=== PATIENT | female | born 1960 | race Caucasian/White ===

== ENCOUNTER → 2020-07-04 10:45 | Outpatient (CLI) | payer BC, SELFPAY ==
--- NOTE | ~2020-07-04 | US_ITS ---
EXAMINATION: US pelvic complete w TV EXAM DATE: 07/04/2020 11:30 INDICATION: Abnormal MRI exam. TECHNIQUE: Pelvic transabdominal and transvaginal sonogram was performed. There are multiple graysca le and Doppler images available for interpretation. There is no prior study for comparison. FINDINGS: Uterus measures 7.0 x 3.5 x 4.1 cm, and is morphologically normal. Endometrial stripe joseph sures 6 mm, within normal limits. There is no free pelvic fluid. Right adnexa: The ovary measures 1.5 x 1.7 x 1.6 cm cm and is morphologically normal. Ovarian vascula r flow confirmed. Left adnexa: The ovary measures 5.8 x 7.0 x 6.1 cm, with an anechoic lesion measuring 4.8 x 5.2 x 5.6 cm. Given that patient is postmenopausal potentially could be a cystic ovarian neoplasm. Differentia l diagnosis includes endometrioma or hemorrhagic cyst. No evidence of complexity or solid mural nodul e identified, favors benign histology Ovarian vascular flow confirmed. IMPRESSION: Left ovarian cystic lesion, possible neoplasm. Could obtain 6 weeks follow-up, or recom mendation based on the MRI examination. Reviewed, dictated and finalized at location A. L INSPECTOR SHUTTLE IMPRESSION: Left ovarian cystic lesion, possible neoplasm. Could obtain 6 wee ks follow-up, or recommendation based on the MRI examination.
== END ==
PROVIDERS: PCP Internal Medicine; Visit Provider Obstetrics & Gynecology Gynecology
DX: R93.5 Abnormal findings on diagnostic imaging of other abdominal regions, including retroperitoneum (principal)
CPT/HCPCS: 76830; 76856

== ENCOUNTER → 2021-02-05 13:25 | Outpatient (CLI) | payer BC, SELFPAY ==
--- NOTE | ~2021-02-05 | US_ITS ---
EXAMINATION: US transvaginal EXAM DATE: 02/05/2021 14:03 INDICATION: Unspecified ovarian cyst, left side . TECHNIQUE: Pelvic transvaginal sonogram was performed. There are multiple grayscale and Doppler imag es available for interpretation. Comparison is made to prior examination from 07/04/2020. FINDINGS: Uterus measures 6.5 x 3.4 x 4.3 cm, and is morphologically normal. Endometrial stripe joseph sures 5 mm, within normal limits. There is no free pelvic fluid. Right adnexa: The ovary is not identified. There is no adnexal mass. Left adnexa: There is left adnexal cystic mass, with 2 separate regions measured at 7.2 x 6.5 x 7.2 c m and the smaller at 4.4 x 4.3 x 4.8 cm. Probably ovarian origin. Difficult to visualize any normal o varian tissue surrounding this, could not document flow, although no acute symptoms were provided. On previous examination the left ovary was also enlarged with cystic region which is probably the goldy e area identified today, possibly with interval increase in size. IMPRESSION: Persistent left ovarian cystic mass, most likely neoplasm in this postmenopausal patient. Consider histologic correlation. Reviewed, dictated and finalized at location A. IMPRESSION: Persistent left ovarian cystic mass, most likely neoplasm in this p ostmenopausal patient. Consider histologic correlation.
== END ==
PROVIDERS: PCP Internal Medicine; Visit Provider Obstetrics & Gynecology Gynecology
DX: N83.202 Unspecified ovarian cyst, left side (principal)
CPT/HCPCS: 76830

== ENCOUNTER 2021-03-19 11:46 | Emergency (ER) | payer BC, SELFPAY ==
[2021-03-19] VITALS (14 sets, daily range): BP systolic 135–154; BP diastolic 83–90; PULSE 67–77; RESP 18; TEMP 36.2–36.4; O2SAT 99–100
--- NOTE | ~2021-03-19 | US_ITS ---
EXAMINATION: US pelvic complete w TV DATE: 03/19/2021 18:20 INDICATION: Left ovarian pain TECHNIQUE: Multiple transabdominal and endovaginal sonographic images of the pelvis were obtained. COMPARISON: None. FINDINGS: The uterus measures 7.9 x 2.7 x 4.3 cm. The endometrial complex measures 5 mm in thickness. The righ t ovary measures 2.6 x 1.9 x 2.4 cm. 1.9 x 1.2 x 1.4 cm anechoic right ovarian cyst. The left ovary m easures 4.3 x 2.6 x 3.8 cm. 9.0 x 7.9 x 6.8 cm anechoic cyst which appears to arise from the left ova ry. There is normal vascular flow in the ovaries. There is no free fluid in the pelvis. IMPRESSION: 1. Bilateral simple appearing ovarian cysts measuring 1.9 cm on the right and 9.0 cm on the left. Reviewed, dictated and finalized at location A. T FURNACE TENDER IMPRESSION: 1. Bilateral simple appearing ovarian cysts measuring 1.9 cm on the right and 9 .0 cm on the left.
[2021-03-19 12:24] LABS: Basophils Absolute Auto 0.1 K/mm3 (0.0-0.1); Basophils Percent Auto 0.8 % (0.2-1.2); Eosinophils Absolute Auto 0.3 K/mm3 (0-0.3); Eosinophils Percent Auto 5.6 % (0-4.4); Hematocrit 40.2 % (37.0-47.0); Hemoglobin 13.6 g/dL (12.0-15.0); Immature Granulocyte Absolute 0.01 K/mm3 (0.00-0.031); Immature Granulocyte Percent A 0.2 % (0-0.5); Lymphocytes Absolute Auto 2.87 K/mm3 (0.9-3.2); Lymphocytes Percent Auto 48.7 % (18.3-44.2); Mean Corpuscular HGB Conc 33.8 g/dl (32-36); Mean Corpuscular Hemoglobin 28.9 pg (26-34); Mean Corpuscular Volume 85.4 fl (80-100); Mean Platelet Volume 9.7 fl (7.4-10.4); Monocytes Absolute Auto 0.4 K/mm3 (0.1-0.6); Monocytes Percent Auto 6.5 % (2.6-8.5); Neutrophils Absolute Auto 2.3 K/mm3 (1.3-6.7); Neutrophils Percent Auto 38.2 % (45.5-73.1); Platelet Count Result 244 k/mm3 (150-375); Red Blood Count 4.71 M/mm3 (4.2-5.4); Red Cell Distribution Width 12.7 % (11.5-14.5); White Blood Count 5.9 K/mm3 (4.5-10.0)
[2021-03-19 12:42] LABS: Alanine Aminotransferase 31 U/L (4-35); Albumin Level 4.4 g/dL (3.5-5.1); Alkaline Phosphatase 55 U/L (38-126); Anion Gap 7 mmol/L (8-16); Aspartate Amino Transferase 28 U/L (14-36); Bilirubin,Total 0.5 mg/dL (0.2-1.3); Blood Urea Nitrogen 12 mg/dL (7-17); Calcium 9.2 mg/dL (8.4-10.2); Carbon Dioxide 29 mmol/L (22-30); Chloride 102 mmol/L (98-107); Estimated CRCL calculation 80 ml/min; Estimated Glomerular Filt Rate > 60; Glucose 91 mg/dL (65-110); Lipase 79 U/L (23-300); Potassium 3.8 mmol/L (3.4-5.0); Sodium 138 mmol/L (137-145)
[2021-03-19 13:13] LABS: Add Urine Microscopic? YES; Appearance Urine Clear (Clear); Bacteria Urine Trace /hpf; Bilirubin Urine Negative (Negative); Blood Urine Negative (Negative); Color Urine Colorless (Yellow); Glucose Urine UA Negative (Negative); Ketones Urine Negative (Negative); Leukocyte Esterase Ur 1+ LEU/UL (Negative); Mucus Urine Rare /lpf; Nitrate Urine Negative (Negative); Protein Urine Negative (Negative); RBC Urine 0-2 /hpf (0-2); Squamous Epithelial Cell Urine Rare /hpf (Few); Urobilinogen Urine Negative mg/dL (<2.0); WBC Urine 0-3 /hpf
[2021-03-19 13:26] LABS: Specific Grav Ur 1.002 (1.001-1.035)
--- NOTE | 2021-03-19 19:06 | ED.GENADULT ---
HPI - General Adult General Chief complaint: Abdominal Pain Stated complaint: pelvis pain, upcoming surgery on Friday Time Seen by Provider: 03/19/21 17:02 Source: patient Mode of arrival: ambulatory Limitations: no limitations History of Present Illness HPI narrative: Patient is a 60-year-old female presented with chief complaint of ovarian discomfort over the past 2 to 3 weeks. Patient alternates between. Complaints of the right and left side. Patient reports she was prescribed tramadol for the pain but it does not work. She reports taking hydrocodone for the pain which she was prescribed for a back problem at a different time. She reports the hydrocodone did not relieve the pain either. Patient reports that she called her [employer] ARCHITECT to request additional pain medication and was told to present to the emergency department. Patient reports that her symptoms have not changed over the past 2 weeks. She denies any vaginal bleeding or discharge. She reports that her [employer] ARCHITECT is Dr. Aguilar and they are planning to perform a oophorectomy on Friday. Related Data Home Medications Medication Instructions Recorded Confirmed celecoxib 200 mg PO PRN PRN 03/19/21 03/19/21 hydrocodone-acetaminophen 1 tablet PO PRN PRN 03/19/21 03/19/21 tramadol 50 mg PO PRN PRN 03/19/21 03/19/21 Allergies Allergy/AdvReac Type Severity Reaction Status Date / Time No Known Allergies Allergy Verified 03/19/21 14:22 Review of Systems Review of Systems: CONSTITUTIONAL: Denies fever, chills, or sweats. EYES: Denies visual changes, redness, or discharge. ENT: Denies rhinorrhea, congestion, sore throat, or otalgia. CARDIOVASCULAR: Denies chest pain, palpitations, or edema. RESPIRATORY: Denies cough or dyspnea. GASTROINTESTINAL: Denies abdominal pain, nausea, vomiting, or diarrhea. GENITOURINARY: Reports ovarian pain denies dysuria or hematuria. SKIN: Denies rash or itching. MUSCULOSKELETAL: Denies back pain, joint pain, or myalgia. NEUROLOGIC: Denies headache, numbness, dizziness, or weakness. PSYCHIATRIC: Denies anxiety or depression. PMFSH Social History Social History Smoking status: Never smoker Spiritual care concerns: No Exam Narrative: GENERAL: Well-appearing, well-nourished, and in no acute distress. Patient appears to be drowsy. HEAD: Normocephalic, atraumatic. EYES: PERRLA and EOMI. CHEST: Clear to auscultation. No respiratory distress. No wheezes rales or rhonchi HEART: Regular rate and rhythm. No murmur heard. Normal peripheral pulses. ABDOMEN: Soft, nontender, nondistended, normal active bowel sounds. EXTREMITIES: Normal range of motion. No edema. SKIN: Warm, dry, no rash. NEURO: No focal deficits. Alert and oriented x3. PSYCH: Normal mood and affect. Course Vital Signs Vital signs: Vital Signs Temperature 97.2 F L 03/19/21 12:04 Pulse Rate 70 03/19/21 12:04 Respiratory Rate 18 03/19/21 12:04 Blood Pressure 154/90 H 03/19/21 12:04 Pulse Oximetry 100 03/19/21 12:04 Temperature 97.5 F L 03/19/21 13:40 Pulse Rate 67 03/19/21 17:12 Respiratory Rate 18 03/19/21 17:12 Blood Pressure 142/83 H 03/19/21 17:12 Pulse Oximetry 100 03/19/21 17:12 Medical Decision Making MDM Narrative Medical decision making narrative: Consult with Dr. Garcia who is on-call for Dr. Aguilar regarding patient presentation, concerns, physical exam, ultrasound report. She states that the patient can be given a single dose of Toradol in the emergency department and be instructed to continue her previously prescribed pain control medication and speak with Dr. Guy tomorrow to discuss plan of care. She denies any additional interventions and is to be completed in emergency department at this time. Vital Signs Vital Signs: Vital Signs Temperature 97.2 F L 03/19/21 12:04 Pulse Rate 70 03/19/21 12:04 Respiratory Rate 18 03/19/21 12:04 Blood Pressure 154/90 H 03/19/21 12:04 Pulse Oximetry 100 03/19/21 12:04
[2021-03-19] MEDS: KETOROLAC (*BKC) 60 MG/2 ML VIAL IM (19:21)
== END 2021-03-19 19:24 | disposition home or self-care (01) ==
PROVIDERS: Emergency Medicine; Emergency Provider Emergency Medicine; PCP Internal Medicine
DX: N94.89 Other specified conditions associated with female genital organs and menstrual cycle (principal); N83.292 Other ovarian cyst, left side; N83.291 Other ovarian cyst, right side
CPT/HCPCS: 36415; 76830; 76856; 80053; 81001; 83690; 85025; 96372; 99284; J1885

== ENCOUNTER → 2021-03-20 01:57 | Outpatient (CLI) | payer BC, SELFPAY ==
[2021-03-20 19:35] LABS: SARS-CoV-2 RNA PCR Negative
== END ==
PROVIDERS: PCP Internal Medicine; Visit Provider Obstetrics & Gynecology Gynecology
DX: Z01.812 Encounter for preprocedural laboratory examination (principal); Z20.822 Contact with and (suspected) exposure to COVID-19
CPT/HCPCS: C9803; U0003; U0005

== ENCOUNTER 2021-03-23 01:22 | Day surgery (SDC) | payer BC, SELFPAY ==
[2021-03-19 14:24] VITALS: BMI 28.1
--- NOTE | 2021-03-19 14:29 | PC.NURSE ---
Report to the Outpatient Waiting Room, entrance under the green pavilion located off [facility], at time _1045 on date03/23/21 . OR Time: ____1245____. - You and your visitor will be asked a series of questions to screen for COVID 19 for your protection. - A mask is required within the hospital. - Only one visitor is allowed at this time. Patient visitors will be guided where to wait when not with patient. Preoperative COVID Testing Requirements: No COVID Test needed if: (proof is required; if not received patient will have Rapid Test prior to entry) COVID TESTING 03/20/21 AT 0900 - Patient has received COVID Vaccine at least 14 days prior to procedure date or - Patient has positive COVID test result within last 90 days of surgery date. COVID Test needed if above criteria is not met If not COVID vaccinated a COVID test must be conducted within 72 hours of surgery and patient is asked to isolate self from time of testing until procedure. You will go to the [employer] [facility] for your COVID testing. The [employer] [facility] site is located at the corner of [address] [facility]. You will only be called if COVID results are positive and your surgeon may reschedule your elective surgery date. Patients may have clear liquids (water, carbonated beverages, clear teas, apple juice) until 3 hours prior to surgery with a maximum of 20 ounces. - No food from midnight until time of surgery - Infants may have breast milk until 4 hours before surgery, formula 6 hours prior to surgery. - Children will be allowed to drink immediately following surgery. If applicable, please bring a bottle or sippy cup to assist with drinking. Juice, water, soda, and popsicles are readily available. For infants on formula, please bring formula the day of surgery. Pacifiers are allowed. Take the following medications with a SIP of water the morning of surgery: PAIN PILL IF NEEDED Medications to discontinue per physician __NONE Date to take last dose Please no make-up, nail luxembourger, hairspray, perfume, deodorant, or body powder the day of surgery. No jewelry (including any body piercings) or valuables the day of surgery, leave them at home. Please take a shower or bath the night before, or the morning of, surgery with an antibacterial soap. Wear comfortable, loose fitting clothing. Children are encouraged to wear pajamas. - Jewelry must be removed prior to entering the operating room. Rings and piercings that are not removed may be cut off. - The hospital will not accept responsibility for valuables. - Please leave all valuables, including medications, at home the day of surgery. If you are going home after surgery, a licensed route delivery service driver must drive you home. - NO public transportation without another adult. - We recommend that an adult stay with you for 24 hours following discharge. - We also recommend that you do not drive, make important decision, drink alcoholic beverages, or take any drugs that were not prescribed by your health care provider for at least 24 hours after your discharge time. For Pediatric surgeries, we recommend two adults accompany the child home (only one inside the building at this time). Follow any additional instructions given to you from your surgeon. Telephone instructions given to ___PATIENT and asked if any additional questions and then verbalized understanding. Patient advised to call surgeon office or pre surgery nurse liaison [phone] if any additional questions.
[2021-03-23] VITALS (9 sets, daily range): BP systolic 116–143; BP diastolic 60–96; PULSE 64–74; RESP 7–18; TEMP 36.2–36.4; O2SAT 95–100
--- NOTE | 2021-03-23 11:28 | WPDANESEPPF ---
Anes - Initial Pre Proc Eval Procedure: Operation Date: 03/23/21 12:45 Proposed Procedures p Bilateral Laparoscopic Salpingo-Oophorectomy - Julissa Aguilar MD Date/Time: 03/23/21 11:28 Surgeon: Julissa Aguilar MD Pre Op Diagnosis: Left ovarian cyst Patient Data Age: 60 Gender: F Height: 1.7 m Weight: 81 kg Last Vital Signs Temp 36.2 C L 03/23/21 10:41 Pulse 70 03/23/21 10:41 Resp 18 03/23/21 10:41 BP 143/78 H 03/23/21 10:41 Pulse Ox 99 03/23/21 10:41 Allergies Allergy/AdvReac Type Severity Reaction Status Date / Time No Known Allergies Allergy Verified 03/23/21 11:05 Home Medications Medication Instructions Recorded Confirmed Type celecoxib 200 mg PO PRN PRN 03/19/21 03/23/21 History hydrocodone-acetaminophen 1 tablet PO PRN PRN 03/19/21 03/23/21 History tramadol 50 mg PO PRN PRN 03/19/21 03/23/21 History Patient hx anesthesia problems: none Family hx anesthesia problems: none Results Review: All pre-operative results and documents have been reviewed as part of the pre-operative evaluation. [facility] Past Medical History Medical History (Updated 03/23/21 @ 11:28 by César Brito MD) Ovarian cyst Overweight Surgical History Surgical History (Updated 03/23/21 @ 11:29 by César Brito MD) H/O thyroidectomy History of section History of cholecystectomy Social History Social History Smoking status: Never smoker Living arrangements: with family Spiritual care concerns: No Anes - Eval Final PreProcedure Day of Procedure 03/23/21 11:28 Patient weight: overweight Heart: regular rate and rhythm Lungs: clear to auscultation Airway: Mallampati scale class II Neurological: alert and oriented Last oral intake: >/= 8 hours ASA classification: II Emergent: no Anesthetic plan: proceed Anesthesia type and monitoring: general ETT and standard monitoring Results Review: All pre-operative results and documents have been reviewed as part of the pre-operative evaluation. Informed Consent: The patient's anesthetic plan and its attendant risks and benefits were discussed with the patient/family/POA. Questions were solicited and answers provided to the satisfaction of the patient/family/POA.
--- NOTE | 2021-03-23 11:42 | WPDHPUPDATE1 ---
History and Physical Update Update Date/Time: 03/23/21 11:42 History and Physical has been reviewed, including an updated exam of the patient. There are NO changes in the patient's condition. Risks, benefits, and alternatives have been discussed and questions answered. Patient agrees to proceed with procedure.
--- NOTE | 2021-03-23 11:42 | PM.HPGS ---
History of Present Illness History of Present Illness Consent: Risks, benefits, and alternatives have been discussed and questions answered. Patient agrees to proceed with procedure. Chief complaint: Left ovarian cyst Narrative: Estefania Brothers is a 60 year old female with an increasing left ovarian cyst that has been causing pain. Th u/s 03/19 showed increase to 9 cm on left and the right with small 1.9 cm cyst. Both are simple cysts and the ca125 is 6.8. Plan to proceed with laparoscopic bilateral salpingooophorectomy. Risks of infection, bleeding, injury to internal organs, and possible exploratory lap discussed. Patient agrees to proceed. Review of Systems Gastrointestinal: Gastrointestinal: Reports abdominal pain Musculoskeletal: Musculoskeletal: Reports back pain PMFSH Past Medical History Medical History (Updated 03/23/21 @ 11:51 by Julissa Aguilar MD) Interstitial cystitis (normal spontaneous vaginal delivery) x2 Ovarian cyst Overweight Surgical History Surgical History (Updated 03/23/21 @ 11:49 by Julissa Aguilar MD) H/O thyroidectomy H/O tubal ligation History of section x2 History of cholecystectomy Social History Social History Smoking status: Never smoker Living arrangements: with family Spiritual care concerns: No Meds Home Medications and Allergies Home Medications Medication Instructions Recorded Confirmed Type celecoxib 200 mg PO PRN PRN 03/19/21 03/23/21 History hydrocodone-acetaminophen 1 tablet PO PRN PRN 03/19/21 03/23/21 History tramadol 50 mg PO PRN PRN 03/19/21 03/23/21 History Allergies Allergy/AdvReac Type Severity Reaction Status Date / Time No Known Allergies Allergy Verified 03/23/21 11:05 Vital Signs Vital Signs - 24 hr 03/23/21 10:41 Temperature 97.2 F L Pulse Rate 70 Respiratory Rate 18 Blood Pressure 143/78 H Pulse Oximetry 99 Exam Const: General: healthy appearing and alert Orientation/consciousness: patient oriented x3 Resp: Effort & Inspection: normal respiratory effort Auscultation: clear to auscultation bilaterally Cardio: Rate: regular rate Rhythm: regular rhythm GI: GI Palp: Yes Soft to palpation, Yes Tenderness to palpation present (GI), No Guarding due to palpation present (GI) and No Palpable mass present : External Female Exam: normal external appearance Speculum Exam - Vagina: normal appearance of the vagina and normal vaginal discharge Speculum Exam - Cervix: normal appearance of the cervix Bimanual exam- vagina & uterus: uterine size normal and consistency normal Bimanual Exam- Adnexa, other: normal adnexae and tender Neuro: General: patient oriented x3 Assessment and Plan Assessment and plan (1) Ovarian cyst: Code(s): N83.209 - Unspecified ovarian cyst, unspecified side Status: Inactive Assessment and Plan: bilateral L>R with increasng size and pain plan laparoscoic BSO
[2021-03-23] MEDS: LACTATED RINGERS 1,000 ML 30 ML IV CONT (11:50)
--- NOTE | 2021-03-23 14:39 | P.OP_ITS ---
Procedure Note - Detailed Date of Procedure 03/23/21 Pre-op Diagnosis Bilateral ovarian cysts Post-op Diagnosis same Procedure Performed Laparoscopic bilateral salpingo oophorectomy and adhesiolysis Surgeon Julissa Aguilar MD Anesthesia general Findings Very large left ovary with a multiloculated cyst adherent to the pelvic sidewall. Omentum adherent to the pelvic sidewall uterus and upper portion of the cyst. Right ovary with multiple cystic lesions. Normal-appearing uterus pelvic and lower abdominal peritoneum appears smooth. Description of Procedure The patient was taken to the operating room and placed under anesthesia in the dorsal lithotomy position. She is prepped and draped in the usual sterile fashion. Courtland speculum was placed in the vagina and the cervix grasped on the anterior lip with a tenaculum. The acorn manipulator is placed. The bladder was drained with a red rubber catheter. The attention was then turned to the abdomen where a vertical skin incision is made at the base of the umbilicus. The Veress needle was placed with an opening patient pressure of 3mmHg. Pneumoperitoneum was obtained with CO2 to a patient pressure of 15mmHg. The the Veress needle was removed and the 5mm Optiview trocar was placed. Intra-abdominal placement is confirmed with the laparoscope. The patient is placed in Trendelenburg. The omental adhesions were noted to the anterior abdominal wall. The left pelvic sidewall was noted to have extensive omental adhesions. The left ovarian mass is noted. The 5mm trocars placed in the midline 2cm above the symphysis pubis under direct visualization. A 12mm trocars placed in the left lower quadrant under direct visualization. Using bipolar cautery with Metzenbaum scissors the omental adhesions were taken down over the pelvis. The left ovary is then able to be manipulated and no adhesions are noted to the ovary. Using the LigaSure the infundibular pelvic ligament is serially clamped cauterized and cut. Once the specimen is free attention is turned to the right ovary. The right tube was grasped with a grasper and the infundibulopelvic ligament serially clamped, cauterized, and cut with the LigaSure. Good hemostasis is noted at all sites. The endobag was placed and the right tube and ovary are placed in the bag and it is removed. The bag is noted to be too small for the left ovary. The 15 mm trocar is placed instead of the 12mm trocar. The 15mm bag is placed and the ovary is able to be scooped into the bag. The ovary is pulled up to the fascia and held tightly were the bag. Using a scalpel the ovary is incised and fluid contained within the bag entirely. Once the cyst is drained the solid portion of the ovary is able to be removed through the port. The pelvis was then irrigated and all pedicles and surgical sites were noted to be hemostatic. Trocars are removed and pneumoperitoneum was reduced. Fascia in the left lower quadrant is closed using 0 Vicryl in a running fashion with a UR 6 needle. Skin incisions were closed using 4-0 nylon. Vaginal instruments are removed. Patient is awakened from anesthesia and taken to recovery in stable condition. Estimated Blood Loss 5 Drains No Packing No Pathology yes (Bilateral tubes and ovaries with cystic fluid from the left ovary) Complications No immediate complications Condition stable Disposition PACU
[2021-03-23] MEDS: ONDANSETRON INJ 4 MG/2 ML VIAL IV PUSH (14:53)
[2021-03-23] MEDS: fentaNYL CITRATE INJ (*CRX) 100 MCG/2 ML VIAL 25 MCG IV PUSH ×3 (14:57→15:22)
[2021-03-23] MEDS: oxyCODONE HCL (*CRX) 5 MG TAB IR PO (15:57)
== END 2021-03-23 16:49 | disposition home or self-care (01) ==
PROVIDERS: PCP Internal Medicine; Visit Provider Obstetrics & Gynecology Gynecology
PROC: (CPT 49320; principal; 2021-03-23 12:45)
DX: D27.0 Benign neoplasm of right ovary (principal); D27.1 Benign neoplasm of left ovary; N83.8 Other noninflammatory disorders of ovary, fallopian tube and broad ligament; N73.6 Female pelvic peritoneal adhesions (postinfective)
CPT/HCPCS: 58661; 88305; A9270; J1100; J2250; J2405; J2704; J2710; J3010; J7030; J7120